=== PATIENT | male | born 1970 | race Caucasian/White ===

== ENCOUNTER 2025-02-26 11:53 | Emergency (ER) | payer OTHER, SELFPAY ==
[2025-02-26] VITALS (24 sets, daily range): BP systolic 118–146; BP diastolic 73–105; PULSE 80–106; TEMP 36.7; O2SAT 97–100; BMI 39.0
--- NOTE | 2025-02-26 12:01 | ECG_ITS ---
[facility] Test Date: 2025-02-26 Pat Name: KRISTINE LOOMIS Department: Room: - Gender: Male Electronic Bench Technician: : 1970 Requested By: [id number] Order Number: [id number] Reading MD: JAD BARNES M.D. Measurements Intervals [place] Rate: 82 P: 61 OR: 162 QRS: 27 QRSD: 94 T: 43 QT: 366 QTc: 405 Interpretive Statements 1100 Sinus rhythm 9110 normal ECG Compared to ECG 10/25/2020 11:34:58 No significant changes Electronically Signed On 02-27-2025 7:36:35 EDT by JAD BARNES M.D.
[2025-02-26 12:08] LABS: Glucometer 89 mg/dL (74-106)
--- NOTE | 2025-02-26 12:13 | ED.SYNCOPE1 ---
HPI - Syncope General Chief Complaint: Syncope Stated Complaint: SYNCOPE Time Seen by Provider: 02/26/25 11:59 Source: patient Mode of arrival: walk-in Limitations: no limitations History of Present Illness HPI narrative: The patient is a 55-year-old male who works in the [employer] [place] apparently he was sitting down and typing on the computer when at 1130 which is almost 45 minutes ago he had an episode where he passed out for few seconds, some of the staff started to wake him up when he woke up he was bit bit confused, he noticed that he have a black rim in the right eye when he woke up, he mentioned that he had no double vision no headache no nausea no vomiting he had no preceding symptoms with this episode And he had no similar presentation before The patient is hypertensive and he have no history of diabetes His blood sugar was 89 upon arrival and patient woke up with no difficulty Related Data Home Medications ?Medication ?Instructions ?Recorded ?Confirmed atorvastatin 80 mg tablet 80 mg PO DAILY 02/26/25 02/26/25 bupropion HCl 300 mg 24 hr tablet, 300 mg PO DAILY 02/26/25 02/26/25 extended release chlorthalidone 25 mg tablet 25 mg PO DAILY 02/26/25 02/26/25 escitalopram oxalate 10 mg tablet 10 mg PO DAILY 02/26/25 02/26/25 losartan 100 mg tablet 100 mg PO DAILY 02/26/25 02/26/25 tadalafil 5 mg tablet 5 mg PO DAILY 02/26/25 02/26/25 Allergies Allergy/AdvReac Type Severity Reaction Status Date / Time Penicillins Allergy Severe Rash Verified 02/26/25 12:05 Sulfa (Sulfonamide Allergy Severe Rash Verified 02/26/25 12:05 Antibiotics) Review of Systems ROS Status of ROS 10 or more systems reviewed and unremarkable except as noted in history and below [facility] Medical History (Updated 02/26/25 @ 14:15 by Diann Quigley MD) History of dislocation of hand ?Z87.828 - Personal history of other (healed) physical injury and trauma (ICD-10) Hypertension ?I10 - Essential (primary) hypertension (ICD-10) Surgical History (Updated 02/26/25 @ 12:09 by Hayden Sweeney) Hx of appendectomy ?Z90.49 - Acquired absence of other specified parts of digestive tract (ICD-10) Social History Little interest or pleasure in doing things: not at all Feeling down, depressed, or hopeless: not at all Exam Narrative Exam Narrative: Nurses notes and vital signs reviewed and patient is not hypoxic. General: Well-appearing and in no apparent distress. Skin: Warm, dry, no pallor noted. No rash. Head: Normocephalic, atraumatic. Neck: Supple, non-tender. Eye: Pupils are equal, round and EOMI. No scleral icterus. Ears, Nose, Mouth, and Throat: TM are clear, no nasal mucosal hypertrophy. Oral mucosa is moist, no posterior oropharynx erythema, uvula is mid-line Cardiovascular: Regular Rate and Rhythm without murmur, gallop or rub. Respiratory: No accessory muscle use or respiratory distress. Lungs are clear to auscultation, no wheezing, rales or rhonchi Chest Wall: no tenderness Back: No midline thoracic or lumbar vertebral tenderness. No CVA tenderness Musculoskeletal: normal ROM, no calf or popliteal tenderness, no lower extremity edema/swelling GI: Abdomen is soft, non-distended. Normal bowel sounds. No masses appreciated. No tenderness to palpation. No rebound, guarding, or rigidity noted. Neurological: A&O x4. No cranial nerve dysfunction observed. No truncal ataxia. Moves all extremities. Sensation intact. Psychiatric: Cooperative and interactive. Normal mood and affect. Complete examination was normal. The patient NIH score Constitutional Vital Signs, click to edit/add: Last Vital Signs Temp 98.1 F 02/26/25 12:00 Pulse 81 02/26/25 14:10 Resp 22 H 02/26/25 13:30 BP 122/84 02/26/25 14:10 Pulse Ox 99 02/26/25 13:30 Course Vital Signs Vital signs: Vital Signs Temperature 98.1 F 02/26/25 12:00 Pulse Rate 86 02/26/25 12:00 Respiratory Rate 20 02/26/25 12:00 Blood Pressure 139/86 02/26/25 12:00 Pulse Oximetry 100 02/26/25 12:00 Temperature 98.1 F 02/26/25 12:00 Pulse Rate 81 02/26/25 14:10 Respiratory Rate 22 H 02/26/25 13:30 Blood Pressure 122/84 02/26/25 14:10 Pulse Oximetry 99 02/26/25 13:30 MDM - Syncope MDM Narrative Medical decision making narrative: The patient EKG in the ER showing sinus rhythm with a heart rate of [address] elevation or depression The patient presentation highly suspicious with acute stroke, possibly embolic in nature The patient had a CT stroke ordered that showed no acute pathology and I discussed the case with the telemetry neurology stroke team Dr. Berrios as well as Dr. Keen recommended that the patient get TNKase And I did evaluate the patient with the ophthalmoscope multiple times to make sure there is no intraocular bleeding The patient is agreeable to take TNKase I did explain to him as well as the neurologist the side effect as well as the need to be provided with that medication and the effect of that improving his vision He understand that not taking the medication will cause him to have permanent loss of vision in the right eye The patient blood pressure was controlled while he was in the ER The patient have a history of hypertension he has no other complaints CBC and chemistry showed no acute pathology After being provided TNKase which was done at a 1:05 PM The patient last known well was 11:30 AM Patient mentioned that the size of the black part of the vision is improving and changing into brown color Initially the patient was to be transferred by [facility] but due to weather we had to go with acute ground transfer Patient will be transferred by ground to care Lab Data Labs: Lab Results 02/26/25 02/26/25 Range/Units 12:06 12:07 WBC 9.3 (4.0-11.0) 10^3/uL RBC 5.74 (4.70-6.10) 10^6/uL Hgb 16.2 (14.0-18.0) g/dL Hct 49.1 (42.0-54.0) % MCV 85.5 (80.0-94.0) fL MCH 28.2 (25.9-34.0) pg MCHC 33.0 (29.9-35.2) g/dL RDW 14.1 (11.0-15.0) % Plt Count 244 (150-450) 10^3/uL MPV 10.5 (9.5-13.5) fL Neut % (Auto) 55.4 (43.0-75.0) % Lymph % (Auto) 28.2 (20.5-60.0) % [place] % (Auto) 11.0 (1.7-12.0) % Eos % (Auto) 4.2 (0.9-7.0) % Baso % (Auto) 0.8 (0.2-2.0) % Neut # (Auto) 5.2 (1.4-6.5) 10^3/uL Lymph # (Auto) 2.6 (1.2-3.8) 10^3/uL [place] # (Auto) 1.0 H (0.3-0.8) 10^3/uL Eos # (Auto) 0.4 (0.0-0.7) 10^3/uL Baso # (Auto) 0.1 (0.0-0.1) 10^3/uL Abs Immat Gran (auto) 0.04 H (0.00-0.03) 10^3/uL Imm/Tot Granulo (auto) 0.4 (0.0-0.5) % PT 10.6 (9.0-11.6) sec INR 1.00 Sodium 142 (136-145) mmol/L Potassium 3.6 (3.5-5.1) mmol/L Chloride 103 (98-107) mmol/L Carbon Dioxide 26.9 (21.0-32.0) mmol/L Anion Gap 15.7 BUN 16.0 (7.0-18.0) mg/dL Creatinine 0.98 (0.70-1.30) mg/dL Est GFR ( Amer) >60 (>=60 mL/min/1.73m^2) Est GFR (Non-Af Amer) >60 (>=60 mL/min/1.73m^2) BUN/Creatinine Ratio 16.3 Glucose 92 (74-106) mg/dL Calcium 9.1 (8.5-10.1) mg/dL Magnesium 2.0 (1.8-2.4) mg/dL Total Bilirubin 0.6 (0.2-1.0) mg/dL AST 24 (15-37) U/L ALT 38 (16-63) U/L Alkaline Phosphatase 122 H (46-116) U/L Troponin I High Sens 9.3 (4.0-76.1) pg/mL Total Protein 7.3 (6.4-8.2) g/dL Albumin 3.8 (3.4-5.0) g/dL Globulin 3.5 g/dL Albumin/Globulin Ratio 1.1 POC Glucose 89 (74-106) mg/dL Discharge Plan Discharge Chief Complaint: Syncope Clinical Impression: Acute loss of vision, Stroke Patient Disposition: [facility] Time of Disposition Decision: 14:15
[2025-02-26 12:15] LABS: Basophils Absolute Auto 0.1 10^3/uL (0.0-0.1); Basophils Percent Auto 0.8 % (0.2-2.0); Eosinophils Absolute Auto 0.4 10^3/uL (0.0-0.7); Eosinophils Percent Auto 4.2 % (0.9-7.0); Hematocrit 49.1 % (42.0-54.0); Hemoglobin 16.2 g/dL (14.0-18.0); Immature Granulocytes Abs Auto 0.04 10^3/uL (0.00-0.03); Immature Granulocytes Pct Auto 0.4 % (0.0-0.5); Lymphocytes Absolute Auto 2.6 10^3/uL (1.2-3.8); Lymphocytes Percent Auto 28.2 % (20.5-60.0); Mean Corpuscular Hemoglobin 28.2 pg (25.9-34.0); Mean Corpuscular Volume 85.5 fL (80.0-94.0); Mean Platelet Volume 10.5 fL (9.5-13.5); Neutrophils Absolute Auto 5.2 10^3/uL (1.4-6.5); Neutrophils Percent Auto 55.4 % (43.0-75.0); Platelet Count 244 10^3/uL (150-450); Red Blood Count 5.74 10^6/uL (4.70-6.10); Red Cell Distribution Width 14.1 % (11.0-15.0); White Blood Count 9.3 10^3/uL (4.0-11.0)
[2025-02-26 12:28] LABS: Prothrombin Time 10.6 sec (9.0-11.6)
[2025-02-26 12:45] LABS: Alanine Aminotransferase 38 U/L (16-63); Albumin Globulin Ratio 1.1; Albumin Level 3.8 g/dL (3.4-5.0); Alkaline Phosphatase 122 U/L (46-116); Anion Gap 15.7; Aspartate Amino Transferase 24 U/L (15-37); BUN Creatinine Ratio 16.3; Bilirubin Total 0.6 mg/dL (0.2-1.0); Calcium 9.1 mg/dL (8.5-10.1); Carbon Dioxide 26.9 mmol/L (21.0-32.0); Chloride 103 mmol/L (98-107); Estimated GFR (African America >60 (>=60 mL/min/1.73m^2); Estimated GFR (Non-African Ame >60 (>=60 mL/min/1.73m^2); Globulin 3.5 g/dL; Glucose 92 mg/dL (74-106); Potassium 3.6 mmol/L (3.5-5.1); Sodium 142 mmol/L (136-145); Total Protein 7.3 g/dL (6.4-8.2); Troponin I High Sensitivity 9.3 pg/mL (4.0-76.1)
[2025-02-26] MEDS: TENECTEPLASE 50 MG VIAL 25 MG IVP (13:01)
== END 2025-02-26 15:00 | disposition short-term general hospital (02) ==
PROVIDERS: Emergency Provider Emergency Medicine; PCP Family Medicine
DX: I63.9 Cerebral infarction, unspecified (principal); H54.7 Unspecified visual loss; I10 Essential (primary) hypertension; Z90.49 Acquired absence of other specified parts of digestive tract
CPT/HCPCS: 36415; 70450; 80053; 83735; 84484; 85025; 85610; 93005; 96374; 99285; J3101